=== PATIENT | male | born 1995 | race Caucasian/White ===

== ENCOUNTER 2020-02-25 15:35 | Emergency (ER) | payer OTHER, SELFPAY ==
[~2020-02-25] VITALS: Ht 165.1 cm; Wt 108.9 kg
[~2020-02-25 15:35] MED LIST: TYLENOL PRN FEVER
[2020-02-25 15:55] VITALS: BP 150/88
[2020-02-25 16:40] VITALS: BP 150/88
== END 2020-02-25 16:40 | disposition home or self-care (01) ==
LOC: MED 15:35
DX: F41.1 Generalized anxiety disorder (principal); R06.02 Shortness of breath; Z79.899 Other long term (current) drug therapy
CPT/HCPCS: 99281